=== PATIENT | female | born 1975 | race Caucasian/White ===

== ENCOUNTER 2019-07-04 05:31 | Emergency (ER) | payer MEDICAID, SELFPAY ==
[2019-07-04 05:32] VITALS: BP 170/121; PULSE 98; RESP 16; TEMP 36.7; O2SAT 96; BMI 30.9
--- NOTE | 2019-07-04 05:43 | W.ED.CHESTPA ---
HPI - Chest Pain General: Chief Complaint: Chest Pain Stated Complaint: CP Time Seen by Provider: 07/04/19 05:35 History of Present Illness: HPI narrative: 44 yo female presetns with complaints of rapid heart rate. Pt had just gotten up to go to the bathroom and had sudden onset of rapid heart rate and dyspnea. EMS was called and their 12 lead showed SVT which spontaneously converted enroute. Pt not had similar episodes in the past. No personal or family hx of CAD, pt does report her BP is chronically elelvated but she is not on any medicaitons. MD complaint: other (rapid heart rate) Pertinent past history: other (HTN, COPD) Timing of current episode: now resolved Onset: during rest Pain radiation: none Severity: severe Relieving factors: other (resolved spontaneously) Exacerbating factors: nothing Associated symptoms: Reports no associated symptoms; Deny abdominal pain, dyspnea, fever(s), nausea or vomiting Treatment prior to arrival: none Review of Systems Const: Denies: fever, chills, body aches, change in appetite, fatigue or malaise ENMT: Denies: throat pain, ear pain, nasal discharge or nasal congestion Card: Denies: chest pain, edema, shortness of breath on exertion or shortness of breath when lying down Resp: Denies: shortness of breath, productive cough or non-productive cough GI: Denies: abdominal pain, nausea, vomiting, vomiting blood, coffee grounds in vomit, diarrhea, constipation, bloating, blood in stool or black tarry stool : Denies: flank pain, difficulty urinating, painful urination, urinary frequency or urinary urgency Skin/Breast: Denies: rash or itching [facility] ED PFSH: Social History Smoking and tobacco status: current every day smoker Alcohol intake: never Current gender identity: Female Physical Exam Const: COMMON NORMALS: no apparent distress GENERAL APPEARANCE: cooperative and comfortable ORIENTATION/CONSCIOUSNESS: Yes awake, Yes oriented to person, Yes oriented to place and Yes oriented to time HENMT: COMMON NORMALS: normocephalic, head/scalp atraumatic, hearing grossly normal bilaterally, external ears normal, EAC's normal, TM's normal bilaterally, nasal mucous membranes and turbinates normal, moist oral mucous membranes and oropharynx normal HEAD & SCALP: normocephalic and atraumatic NOSE: nasal mucous membranes and turbinates normal EXTERNAL EAR: Yes external ears normal EXTERNAL AUDITORY CANAL: EAC's normal TYMPANIC MEMBRANE: TM's normal bilaterally Eye: COMMON NORMALS: PERRL, EOMs intact bilaterally, conjunctivae normal and no scleral icterus CONJUNCTIVA: Yes conjunctivae normal PUPIL: Yes PERRL Neck/C-Spine: COMMON NORMALS: full ROM, no lymphadenopathy, supple and no JVD Lymph: LYMPHATIC: no lymphadenopathy noted and no lymphedema noted Resp: COMMON NORMALS: normal respiratory effort, no retractions, no use of accessory muscles and clear to auscultation bilaterally AUSCULTATION: clear to auscultation bilaterally Cardio: COMMON NORMALS: no JVD, regular rate, regular rhythm and no murmurs RATE: regular rate RHYTHM: regular rhythm GI: COMMON NORMALS: soft to palpation and no hepatosplenomegaly AUSCULTATION: Yes normoactive bowel sounds PALPATION: Yes soft, No tender, No guarding and Yes no hepatosplenomegaly Extremity: COMMON NORMALS: normal to inspection, normal capillary refill, no clubbing, cyanosis or edema, no calf tenderness and no pedal edema Neuro: SENSORIUM/ORIENTATION: Yes oriented to person, Yes oriented to place and Yes oriented to time Skin: COMMON NORMALS: no rashes or lesions noted GENERAL SKIN EXAM: no rashes or lesions noted Course ED course: EMS documentation showed SVT that spontaneously converted back to normal sinus rhythm. On arrival here patient is mildly tachycardic but feeling much better sensation of palpitations resolved and has not recurred since she does admit to untreated hypertension she previously been on as many as 3 blood pressure medications. Discussed findings with her we will go ahead and start her on metoprolol 25 p.o. daily and lisinopril 5 p.o. daily have her follow-up with her primary care doctor later this week. additionally we will get her set up for a Holter monitor and referral to cardiology. Vital Signs: Vital signs: Vital Signs Temperature 98.1 F 07/04/19 05:32 Pulse Rate 98 07/04/19 05:32 Respiratory Rate 16 07/04/19 05:32 Blood Pressure 170/121 07/04/19 05:32 Pulse Oximetry 96 07/04/19 05:32 MDM - Chest Pain Lab Data: Labs: Lab Results 07/04/19 07/04/19 07/04/19 Range/Units 05:57 05:57 06:05 WBC 5.4 (4.0-10.0) 10^3/ uL RBC 4.68 (4.1-5.3) 10^6/u L Hgb 15.6 H (11.5-15.3) g/dL Hct 45.4 (37.0-47.0) % MCV 97.0 (81-99) fL MCH 33.3 (28.0-34.0) pg MCHC 34.4 (30.0-36.0) g/dL RDW 11.9 L (12.1-15.1) % Plt Count 131 (130-400) 10^3/c mm MPV 10.7 H (7.4-10.4) fL Neut % (Auto) 58.8 % Lymph % (Auto) 32.2 % [place] % (Auto) 5.4 % Eos % (Auto) 2.8 % Baso % (Auto) 0.6 % Neut # (Auto) 3.2 (1.8-7.7) 10^3/u L Lymph # (Auto) 1.7 (0.8-4.8) 10^3/u L [place] # (Auto) 0.3 (0.2-0.9) 10^3/u L Eos # (Auto) 0.2 (0.0-0.8) 10^3/u L Baso # (Auto) 0.0 (0.0-0.1) 10^3/u L Nucleated RBC % (a uto) 0 % Nucleated RBCs # 0.0 /100WBC Sodium (136-145) mmol/L Potassium (3.5-5.1) mmol/L Chloride (98-107) mmol/L Carbon Dioxide (22-29) mmol/L Anion Gap (5-19) BUN (6-20) mg/dL Creatinine (0.5-0.9) mg/dL GFR Calculation (90-130) mL/min Glucose (65-115) mg/dL Calculated Osmolal ity (285-295) mOsm/k g Calcium (8.5-10.5) mg/dL Total Bilirubin (0.15-1.2) mg/dL AST (0-32) U/L ALT (0-33) U/L Alkaline Phosphata se (35-105) IU/L Troponin T Baselin e (0-10) ng/mL Total Protein (6.6-8.7) g/dL Albumin (3.5-5.2) g/dL Globulin (1.3-4.6) g/dL TSH (0.27-4.20) uIU/ mL Free T4 (0.82-1.77) ng/d L Urine Color Yellow (Yellow) Urine Appearance Clear (CLEAR) Urine pH 6 (5-7) Ur Specific Gravit y 1.010 (1.005-1.030) Urine Protein Neg (Negative) Urine Glucose (UA) Norm (Normal) Urine Ketones Negative (Negative) Urine Blood Neg (Negative) Urine Nitrate Negative (Negative) Urine Bilirubin Neg (NEGATIVE) Urine Urobilinogen Norm (Negative) mg/dL Ur Leukocyte Lisa ase Negative (Negative) Urine Opiates Scre en Negative (Negative) ng/mL Ur Barbiturates Sc reen Negative (Negative) ng/mL Ur Phencyclidine S crn Negative (Negative) ng/mL Ur Amphetamines Sc reen Negative (Negative) ng/mL U Benzodiazepines Scrn Negative (Negative) ng/mL Urine Cocaine Scre en Negative (Negative) ng/mL U Marijuana (THC) Screen Negative (Negative) ng/mL 07/04/19 07/04/19 Range/Units 06:05 06:05 WBC (4.0-10.0) 10^3/ uL RBC (4.1-5.3) 10^6/u L Hgb (11.5-15.3) g/dL Hct (37.0-47.0) % MCV (81-99) fL MCH (28.0-34.0) pg MCHC (30.0-36.0) g/dL RDW (12.1-15.1) % Plt Count (130-400) 10^3/c mm MPV (7.4-10.4) fL Neut % (Auto) % Lymph % (Auto) % [place] % (Auto) % Eos % (Auto) % Baso % (Auto) % Neut # (Auto) (1.8-7.7) 10^3/u L Lymph # (Auto) (0.8-4.8) 10^3/u L [place] # (Auto) (0.2-0.9) 10^3/u L Eos # (Auto) (0.0-0.8) 10^3/u L Baso # (Auto) (0.0-0.1) 10^3/u L Nucleated RBC % (a uto) % Nucleated RBCs # /100WBC Sodium 138 (136-145) mmol/L Potassium 4.3 (3.5-5.1) mmol/L Chloride 104 (98-107) mmol/L Carbon Dioxide 23 (22-29) mmol/L Anion Gap 15.3 (5-19) BUN 6 (6-20) mg/dL Creatinine 0.6 (0.5-0.9) mg/dL GFR Calculation 108.1 (90-130) mL/min Glucose 159 H (65-115) mg/dL Calculated Osmolal ity 285 (285-295) mOsm/k g Calcium 9.6 (8.5-10.5) mg/dL Total Bilirubin 0.8 (0.15-1.2) mg/dL AST 97 H (0-32) U/L ALT 87 H (0-33) U/L Alkaline Phosphata se 119 H (35-105) IU/L Troponin T Baselin e 6 (0-10) ng/mL Total Protein 7.5 (6.6-8.7) g/dL Albumin 3.7 (3.5-5.2) g/dL Globulin 3.8 (1.3-4.6) g/dL TSH 2.69 (0.27-4.20) uIU/ mL Free T4 0.93 (0.82-1.77) ng/d L Urine Color (Yellow) Urine Appearance (CLEAR) Urine pH (5-7) Ur Specific Gravit y (1.005-1.030) Urine Protein (Negative) Urine Glucose (UA) (Normal) Urine Ketones (Negative) Urine Blood (Negative) Urine Nitrate (Negative) Urine Bilirubin (NEGATIVE) Urine Urobilinogen (Negative) mg/dL Ur Leukocyte Lisa ase (Negative) Urine Opiates Scre en (Negative) ng/mL Ur Barbiturates Sc reen (Negative) ng/mL Ur Phencyclidine S crn (Negative) ng/mL Ur Amphetamines Sc reen (Negative) ng/mL U Benzodiazepines Scrn (Negative) ng/mL Urine Cocaine Scre en (Negative) ng/mL U Marijuana (THC) Screen (Negative) ng/mL Discharge Plan Discharge Patient Disposition: Home, Self-Care Clinical Impression: SVT (supraventricular tachycardia) Condition: Stable Prescriptions: New lisinopril 5 mg tablet 5 mg PO DAILY Qty: 30 RF: 0 metoprolol succinate 25 mg tablet extended release 24 hr 25 mg PO DAILY Qty: 30 RF: 0 Discharge Orders: Discharge Order (Routine); Ordered 07/04/19 Ordered By: Josue Borges Referrals: Pau Gallegos NP [Family Provider] - JEMMA BECKER JR, MD [Primary Care Provider] - Discharge Diet: Usual diet Discharge Activity: Resume usual activity Activity Restrictions/Additional Instructions: Case management will call with an appointment for a Holter monitor Coding Level of Care Code ED [employer] for Caleb Elliott
--- NOTE | 2019-07-04 05:48 | XRR_ITS ---
PROCEDURE INFORMATION: Exam: XR Chest, 1 View Exam date and time: 07/04/2019 6:11 AM Age: 44 years old Clinical indication: Cough and dyspnea; Additional info: Dyspnea/cough TECHNIQUE: Imaging protocol: XR of the chest Views: Frontal portable upright view of the chest. COMPARISON: CR Chest 2 views* [id number] 11/12/2015 8:44 AM FINDINGS: Tubes, catheters and devices: EKG leads are present overlying the chest. Lungs: The lungs are clear bilaterally. The pulmonary vasculature is normal. Pleural space: No pleural effusion. No pneumothorax. Heart/Mediastinum: The heart is normal in size and contour. Mediastinum: Stable. Bones/joints: Healed chronic left rib fractures. XR/XR chest 1V portable [id number] IMPRESSION: No acute cardiopulmonary abnormality identified.
[2019-07-04] MEDS: metoprolol tartrate 1 mg/1 mL SDV 5 mL 5 MG IV (06:07)
[2019-07-04] MEDS: lisinopril 5 mg Tablet PO (06:09)
[2019-07-04] MEDS: metoprolol succinate ER (24 HR) 50 mg Tablet PO (06:09)
[2019-07-04 06:11] LABS: Basophils % 0.6 %; Eosinophils # 0.2 10^3/uL (0.0-0.8); Eosinophils % 2.8 %; Hematocrit 45.4 % (37.0-47.0); Hemoglobin 15.6 g/dL (11.5-15.3); Lymphocytes # 1.7 10^3/uL (0.8-4.8); Lymphocytes % 32.2 %; Mean Corpuscular HGB Conc 34.4 g/dL (30.0-36.0); Mean Corpuscular Hemoglobin 33.3 pg (28.0-34.0); Mean Platelet Volume 10.7 fL (7.4-10.4); Monocytes # 0.3 10^3/uL (0.2-0.9); Monocytes % 5.4 %; Neutrophils # 3.2 10^3/uL (1.8-7.7); Neutrophils % 58.8 %; Nucleated Red Blood Cells % 0 %; Platelet Count 131 10^3/cmm (130-400); Red Blood Count 4.68 10^6/uL (4.1-5.3); Red Cell Distribution Width 11.9 % (12.1-15.1); White Blood Count 5.4 10^3/uL (4.0-10.0)
[2019-07-04 06:18] LABS: Add Urine Microscopic? NO
[2019-07-04 06:27] LABS: Troponin(5th) Baseline 6 ng/mL (0-10)
[2019-07-04 06:29] LABS: Bilirubin Urine Neg (NEGATIVE); Blood Urine Neg (Negative); Glucose Urine UA Norm (Normal); Ketones Urine Negative (Negative); Leukocyte Esterase Urine Negative (Negative); Nitrate Urine Negative (Negative); Protein Urine Neg (Negative); Urine Appearance Clear (CLEAR); Urine Color Yellow (Yellow); Urobilinogen Urine Norm (Negative); pH Urine 6 (5-7)
[2019-07-04 06:38] LABS: Amphetamines Screen Urine Negative (Negative); Barbiturates Screen Urine Negative (Negative); Benzodiazepines Screen Urine Negative (Negative); Cocaine Screen Urine Negative (Negative); Opiate Screen Urine Negative (Negative); PCP Screen Urine Negative (Negative); THC Screen Urine Negative (Negative)
[2019-07-04 06:45] LABS: Alanine Aminotransferase 87 U/L (0-33); Albumin Level 3.7 g/dL (3.5-5.2); Alkaline Phosphatase 119 IU/L (35-105); Anion Gap 15.3 (5-19); Aspartate Amino Transferase 97 U/L (0-32); Blood Urea Nitrogen 6 mg/dL (6-20); Calcium 9.6 mg/dL (8.5-10.5); Carbon Dioxide 23 mmol/L (22-29); Chloride 104 mmol/L (98-107); Free T4 Free Thyroxine 0.93 ng/dL (0.82-1.77); Globulin 3.8 g/dL (1.3-4.6); Glomerular Filtration Rate 108.1 mL/min (90-130); Glucose 159 mg/dL (65-115); Osmolality Calculated 285 mOsm/kg (285-295); Potassium 4.3 mmol/L (3.5-5.1); Sodium 138 mmol/L (136-145); Thyroid Stimulating Hormone 2.69 uIU/mL (0.27-4.20); Total Bilirubin 0.8 mg/dL (0.15-1.2); Total Protein 7.5 g/dL (6.6-8.7)
[2019-07-04 07:19] VITALS: BP 112/91; PULSE 90; RESP 18; O2SAT 97
--- NOTE | 2019-07-04 11:48 | ECG_ITS ---
Measurements Intervals [place] Rate: 102 P: 53 ME: 157 QRS: 24 QRSD: 83 T: 56 QT: 331 QTc: 431 SINUS TACHYCARDIA ABNORMAL RHYTHM ECG No previous ECG available for comparison Electronically Signed On 07-04-2019 9:07:57 CDT by Jeovany Ordaz M.D. [email or web address]
--- NOTE | 2019-07-05 14:21 | DCPLANNER ---
retail assistant manager had message to schedule an out patient Halter monitor for patient with [facility]. retail assistant manager had physician fill out outpatient order, faxed to [facility]. retail assistant manager will call for appointment information.
--- NOTE | 2019-07-10 11:29 | DCPLANNER ---
[facility] has received the order for the halter monitor, cannot reach patient at this time to schedule appointment. [facility] has left a message for patient to return phone call to schedule appointment.
== END 2019-07-04 07:32 | disposition home or self-care (01) ==
PROVIDERS: Emergency Provider Family Medicine; Family Provider Nurse Practitioner Family; PCP Internal Medicine Pulmonary Disease
DX: I47.1 Supraventricular tachycardia (principal); I10 Essential (primary) hypertension; J44.9 Chronic obstructive pulmonary disease, unspecified; F17.200 Nicotine dependence, unspecified, uncomplicated
CPT/HCPCS: 12345; 71045; 80053; 80307; 81003; 84439; 84443; 84484; 85025; 93005; 96374; 99283; 99284; A9270; J3490

== ENCOUNTER → 2019-08-09 08:49 | Outpatient (BNVA) | payer MEDICAID, SELFPAY | PROVIDERS: Family Provider Nurse Practitioner Family; PCP Internal Medicine Pulmonary Disease; Visit Provider Psychiatry & Neurology Psychiatry | DX: F40.01 Agoraphobia with panic disorder (principal); F33.9 Major depressive disorder, recurrent, unspecified | CPT/HCPCS: 90834 ==

== ENCOUNTER → 2019-09-13 07:47 | Outpatient (BNVA) | payer MEDICAID, SELFPAY | PROVIDERS: Family Provider Nurse Practitioner Family; PCP Internal Medicine Pulmonary Disease; Visit Provider Nurse Practitioner Psychiatric/Mental Health | DX: F33.9 Major depressive disorder, recurrent, unspecified (principal); F40.01 Agoraphobia with panic disorder | CPT/HCPCS: 99213 ==

== ENCOUNTER → 2019-10-30 08:04 | Outpatient (BNVA) | payer MEDICAID, SELFPAY | PROVIDERS: Family Provider Nurse Practitioner Family; PCP Internal Medicine Pulmonary Disease; Visit Provider Nurse Practitioner Psychiatric/Mental Health | DX: F33.9 Major depressive disorder, recurrent, unspecified (principal); F40.01 Agoraphobia with panic disorder; F43.12 Post-traumatic stress disorder, chronic | CPT/HCPCS: 99213 ==

== ENCOUNTER → 2019-12-25 09:11 | Outpatient (BNVA) | payer MEDICAID, SELFPAY | PROVIDERS: Family Provider Nurse Practitioner Family; PCP Internal Medicine Pulmonary Disease; Visit Provider Nurse Practitioner Psychiatric/Mental Health | DX: F33.9 Major depressive disorder, recurrent, unspecified (principal); F40.01 Agoraphobia with panic disorder; F43.12 Post-traumatic stress disorder, chronic | CPT/HCPCS: 99212 ==

== ENCOUNTER → 2020-02-18 11:57 | Outpatient (BNVA) | payer MEDICAID, SELFPAY | PROVIDERS: Family Provider Nurse Practitioner Family; PCP Internal Medicine Pulmonary Disease; Visit Provider Nurse Practitioner Family | DX: Z11.59 Encounter for screening for other viral diseases (principal); J06.9 Acute upper respiratory infection, unspecified | CPT/HCPCS: 87635 ==

== ENCOUNTER → 2020-02-21 07:45 | Outpatient (BNVA) | payer MEDICAID, SELFPAY | PROVIDERS: Family Provider Nurse Practitioner Family; PCP Internal Medicine Pulmonary Disease; Visit Provider Nurse Practitioner Psychiatric/Mental Health | DX: F33.9 Major depressive disorder, recurrent, unspecified (principal); F40.01 Agoraphobia with panic disorder; F43.12 Post-traumatic stress disorder, chronic | CPT/HCPCS: G0463 ==

== ENCOUNTER → 2020-03-28 12:23 | Outpatient (BNVA) | payer MEDICAID, SELFPAY | PROVIDERS: Family Provider Nurse Practitioner Family; PCP Internal Medicine Pulmonary Disease; Visit Provider Nurse Practitioner Family | DX: Z20.828 Contact with and (suspected) exposure to other viral communicable diseases (principal); J06.9 Acute upper respiratory infection, unspecified | CPT/HCPCS: 87635 ==

== ENCOUNTER → 2020-05-19 08:01 | Outpatient (BNVA) | payer OTHER, SELFPAY | PROVIDERS: Family Provider Nurse Practitioner Family; PCP Internal Medicine Pulmonary Disease; Visit Provider Nurse Practitioner Psychiatric/Mental Health | DX: F40.01 Agoraphobia with panic disorder (principal); F43.12 Post-traumatic stress disorder, chronic; F33.41 Major depressive disorder, recurrent, in partial remission | CPT/HCPCS: 99213 ==

== ENCOUNTER → 2020-08-11 08:06 | Outpatient (BNVA) | payer OTHER, MEDICAID, SELFPAY | PROVIDERS: Family Provider Nurse Practitioner Family; PCP Internal Medicine Pulmonary Disease; Visit Provider Nurse Practitioner Psychiatric/Mental Health | DX: F40.01 Agoraphobia with panic disorder (principal); F43.12 Post-traumatic stress disorder, chronic; F33.41 Major depressive disorder, recurrent, in partial remission | CPT/HCPCS: 99213 ==

== ENCOUNTER 2020-08-12 18:32 | Emergency (ER) | payer MEDICAID, SELFPAY ==
[2020-08-12 18:42] VITALS: BP 170/144; PULSE 135; RESP 18; TEMP 36.9; O2SAT 96
--- NOTE | 2020-08-12 18:49 | XR_ITS ---
WS: [id number] Right leg including the tibia and fibula, 08/12/2020 Clinical Data: pain Comparison: None. Findings: There has been internal fixation of a comminuted fracture of the distal right tibia. There is a media l plate fixed with multiple screws and there are transverse screws just superior to the ankle mortise . There is a comminuted fracture of the mid shaft of the right fibula of indeterminate age. There are bony defects in the proximal right tibia from previous skeletal fixation. XR/XR tibia fibula RT 2V [id number] Impression: 1. Internal fixation of distal right tibial fracture. 2. Mid shaft fracture right fibula of indeterminate age.
--- NOTE | 2020-08-12 18:49 | XR_ITS ---
WS: [id number] Right ankle, 3 views, 08/12/2020 Clinical Data: pain Comparison: None. Findings: There has been internal fixation of a comminuted fracture of the distal right tibia. A mredial plate has been fixed with multiple screws and there are transverse screws just superior to the ankle mortis e. There is a comminuted mid shaft fracture of the right fibula of indeterminate age. There are small defects in the proximal right tibia from a previous skeletal fixation. XR/XR ankle RT min 3V* [id number] Impression: 1. Internal fixation of comminuted fracture of distal right tibia. 2. Mid shaft fracture of the right fibula of indeterminate age.
--- NOTE | 2020-08-12 18:52 | ED_ITS ---
HPI - Fall General: Chief Complaint: Fall Stated Complaint: RECENT SURGERY, FALL Time Seen by Provider: 08/12/20 18:44 Source: patient Mode of arrival: EMS Limitations: no limitations History of Present Illness: HPI Narrative: Patient fell in the bathroom today and reinjured her right lower leg and ankle that had previous surgery approximately 1 month ago at [facility]. She has a history of anxiety and depression. She is very dramatic now. She is presently in a splint to her right lower leg. She states she has scheduled follow-up in approximately 8 days with her orthopedist. complaint: fall Onset (ago): minute(s) (45) Fall from: standing Fall witnessed: no Place fall occurred: home Loss of consciousness: None Prolonged down time: no Symptoms prior to fall: none Context: tripped/slipped (Slipped in the bathroom) Location of injury: other Location of injury - extremities: Right: lower leg and ankle Severity: moderate Quality: sharp Associated symptoms-after fall: Reports no associated symptoms; Denies abdominal pain, chest pain, headache(s) or neck pain Review of Systems Const: Denies: fever(s) or chills Eyes: Denies: change in vision ENMT: Denies: throat pain Card: Denies: chest pain or palpitations Resp: Denies: dyspnea or wheezing GI: Denies: abdominal pain, nausea or vomiting : Denies: flank pain Musc: Reports: extremity pain and joint pain; Denies: neck pain, back pain, extremity swelling or joint swelling Skin/Breast: Denies: rash or pruritus Neuro: Denies: headache(s) or numbness in extremities Psych: Reports: anxiety and panic attacks Robert/Lymph: Denies: enlarged lymph nodes PFSH ED PFSH: Medical History Major depression, recurrent, chronic Major depressive disorder, recurrent, in partial remission Panic disorder with agoraphobia Social History Smoking and tobacco status: current every day smoker Alcohol intake: never Current gender identity: Female Physical Exam Const: COMMON NORMALS: patient oriented x3, no limitations and well nourished (obese; anxious) EXAM LIMITATIONS: altered mental status GENERAL APPEARANCE: cooperative HENMT: COMMON NORMALS: normocephalic and atraumatic HEAD & SCALP: normocephalic and atraumatic FACE & SINUS: normal facial exam Eye: COMMON NORMALS: EOMs intact bilaterally Neck/C-Spine: COMMON NORMALS: full ROM, no lymphadenopathy, supple and no meningeal signs GENERAL: Yes normal visual inspection Lymph: LYMPHATIC: no lymphadenopathy noted Chest: COMMONS NORMALS: normal inspection of the chest and normal palpation of entire chest wall CHEST: No Ecchymosis present and No rash Resp: COMMON NORMALS: normal respiratory effort, No retractions and clear to auscultation bilaterally EFFORT & INSPECTION: No respiratory distress A USCULTATION: clear to auscultation bilaterally Cardio: COMMON NORMALS: regular rate, regular rhythm and Peripheral pulses 2+ throughout JUGULAR VENOUS DISTENTION: no JVD RATE: regular rate RHYTHM: regular rhythm PERIPHERAL PULSES: Peripheral pulses 2+ throughout GI: COMMON NORMALS: Normal to inspection, nondistended, normoactive bowel sounds present and non-tender : COMMON NORMALS: Yes no CVA tenderness BLADDER/KIDNEY EXAM: Yes no CVA tenderness Back/Pelvis: COMMON NORMALS: no CVA tenderness Extremity: COMMON NORMALS: capillary refill normal NARRATIVE EXTREMITY EXAM: Patient is a splint to the right lower leg and ankle consistent with previous surgery. Splint appears intact. Peripheral circulation is normal. Capillary refill normal. No obvious deformity to the right lower leg except for the splint. Neuro: COMMON NORMALS: patient oriented x3, CN's II-XII intact bilaterally, no focal motor deficits and no sensory deficits noted MENINGEAL SIGNS: Yes no meningeal signs Psych: COMMON NORMALS: mental status grossly normal, Normal thought process present and cooperative ATTITUDE: Yes Other attitude/behavior findings present (Psych) (Anxious) THOUGHT PROCESS: Normal thought process present Skin: COMMON NORMALS: no rashes or lesions noted and no wounds GENERAL SKIN EXAM: no rashes or lesions noted Course Vital Signs: Vital signs: Vital Signs Temperature 98.4 F 08/12/20 18:42 Pulse Rate 131 H 08/12/20 19:12 Respiratory Rate 22 H 08/12/20 19:12 Blood Pressure 168/99 08/12/20 19:12 Pulse Oximetry 98 08/12/20 19:12 MDM - Fall MDM Narrative: Medical decision making narrative: Nursing assessment reviewed. Imaging Data^: Xray Ortho: Attestation: I personally reviewed and interpreted this imaging study as follows: My impression: X-ray of right ankle and right tib-fib show hardware intact in the lumbar tibia. Mildly displaced comminuted fracture of the midshaft of the right fibula with good alignment. Nothing acute. Discharge Plan Discharge Condition: Stable Prescriptions: No Action metformin 500 mg tablet 500 mg PO BIDWMEAL RF: 0 oxycodone 5 mg capsule 5 mg PO Q4H PRNRF: 0 glipizide 5 mg tablet 5 mg PO QAM RF: 0 buspirone 10 mg tablet 20 mg PO TID 30 Days Qty: 180 RF: 2 venlafaxine 75 mg tablet 75 mg PO DAILY Qty: 30 RF: 2 venlafaxine [Effexor XR] 150 mg capsule,extended release 24hr 150 mg PO DAILY Qty: 30 RF: 2 eszopiclone [Lunesta] 2 mg tablet 2 mg PO .qhs PRN (Reason: insomnia) Qty: 30 RF: 2 Spiriva with HandiHaler 18 mcg capsule, w/inhalation device 1 cap INHALATION DAILY RF: 0 lisinopril 5 mg tablet 5 mg PO DAILY Qty: 30 RF: 0 metoprolol succinate 25 mg tablet extended release 24 hr 25 mg PO DAILY Qty: 30 RF: 0 Discharge Orders: Discharge ED (Routine); Ordered 08/12/20 Ordered By: Amos Frazier Referrals: Pau Gallegos NP [Primary Care Provider] - Discharge Diet: Advance as tolerated Discharge Activity: Use walker/crutches as instructed Patient Instructions: Fractures, Anxiety (ED) Activity Restrictions/Additional Instructions: Continue oxycodone for pain. Follow-up with your orthopedist as scheduled next week.No weightbearing on the right leg. Coding Level of Care Code ED [employer] for Caleb Fwskylar Exam Comprehensive
[2020-08-12] MEDS: HYDROmorphone 1 mg/mL INJ 1 mL IM (19:07)
[2020-08-12] MEDS: LORazepam 2 mg/mL INJ 1 mL 1 MG IM (19:08)
[2020-08-12 19:12] VITALS: BP 168/99; PULSE 131; RESP 22; O2SAT 98
[2020-08-12 20:07] VITALS: BP 160/76; PULSE 132; RESP 22; O2SAT 95
== END 2020-08-12 20:07 ==
PROVIDERS: Emergency Provider Family Medicine; PCP Nurse Practitioner Family
DX: S82.451A Displaced comminuted fracture of shaft of right fibula, initial encounter for closed fracture (principal); W19.XXXA Unspecified fall, initial encounter; F17.210 Nicotine dependence, cigarettes, uncomplicated
CPT/HCPCS: 73590; 73610; 96372; 99283; J1170; J2060

== ENCOUNTER → 2020-11-04 07:27 | Outpatient (BNVA) | payer OTHER, MEDICAID, SELFPAY | PROVIDERS: PCP Nurse Practitioner Family; Visit Provider Nurse Practitioner Psychiatric/Mental Health | DX: F40.01 Agoraphobia with panic disorder (principal); F43.12 Post-traumatic stress disorder, chronic; F33.41 Major depressive disorder, recurrent, in partial remission | CPT/HCPCS: 99214 ==

== ENCOUNTER → 2021-01-05 07:33 | Outpatient (BNVA) | payer OTHER, MEDICAID, SELFPAY | PROVIDERS: PCP Nurse Practitioner Family; Visit Provider Nurse Practitioner Psychiatric/Mental Health | DX: F40.01 Agoraphobia with panic disorder (principal); F43.12 Post-traumatic stress disorder, chronic; F33.41 Major depressive disorder, recurrent, in partial remission | CPT/HCPCS: 99213 ==

== ENCOUNTER → 2021-03-30 07:41 | Outpatient (BNVA) | payer OTHER, SELFPAY | PROVIDERS: PCP Nurse Practitioner Family; Visit Provider Nurse Practitioner Psychiatric/Mental Health | DX: F40.01 Agoraphobia with panic disorder (principal); F43.12 Post-traumatic stress disorder, chronic; F33.41 Major depressive disorder, recurrent, in partial remission | CPT/HCPCS: 99213 ==

== ENCOUNTER → 2021-04-14 12:45 | Outpatient (BNVA) | payer OTHER, MEDICAID, SELFPAY | PROVIDERS: PCP Nurse Practitioner Family; Visit Provider Nurse Practitioner | DX: Z20.822 Contact with and (suspected) exposure to COVID-19 (principal) | CPT/HCPCS: 87635 ==

== ENCOUNTER → 2021-05-14 07:12 | Outpatient (BNVA) | payer OTHER, MEDICAID, SELFPAY | PROVIDERS: PCP Nurse Practitioner Family; Visit Provider Nurse Practitioner Psychiatric/Mental Health | DX: F40.01 Agoraphobia with panic disorder (principal); F43.12 Post-traumatic stress disorder, chronic; F33.41 Major depressive disorder, recurrent, in partial remission | CPT/HCPCS: 99214 ==

== ENCOUNTER → 2021-07-30 10:19 | Outpatient (BNVA) | payer MEDICAID, SELFPAY | PROVIDERS: PCP Nurse Practitioner Family; Visit Provider Family Medicine | DX: S99.921A Unspecified injury of right foot, initial encounter (principal); W22.8XXA Striking against or struck by other objects, initial encounter | CPT/HCPCS: 73630 ==

== ENCOUNTER → 2021-08-06 07:27 | Outpatient (BNVA) | payer MEDICAID, SELFPAY | PROVIDERS: PCP Nurse Practitioner Family; Visit Provider Nurse Practitioner Psychiatric/Mental Health | DX: F40.01 Agoraphobia with panic disorder (principal); F43.12 Post-traumatic stress disorder, chronic; F33.41 Major depressive disorder, recurrent, in partial remission; Z03.89 Encounter for observation for other suspected diseases and conditions ruled out | CPT/HCPCS: 99214 ==

== ENCOUNTER → 2022-01-29 12:03 | Outpatient (BNVA) | payer MEDICAID, SELFPAY | PROVIDERS: Visit Provider Family Medicine | DX: J44.1 Chronic obstructive pulmonary disease with (acute) exacerbation (principal); J06.9 Acute upper respiratory infection, unspecified; E11.9 Type 2 diabetes mellitus without complications; E55.9 Vitamin D deficiency, unspecified | CPT/HCPCS: 71045 ==